=== PATIENT | male | born 1965 ===

== ENCOUNTER 2018-10-01 10:07 | Outpatient (REF) | payer BC, SELFPAY ==
[2018-10-01 17:11] LABS: ALT 101 U/L (12-78); Anion Gap 10.4 mmol/L (3-11); BUN 16 mg/dL (7-18); CO2 25.6 mmol/L (21.0-32.0); CREATININE 1.09 mg/dL (0.70-1.30); Calcium 8.9 mg/dL (8.5-10.1); Chloride 105 mmol/L (98-107); Cholesterol 284 mg/dL (50-200); Glucose 110 mg/dL (70-100); HDL Cholesterol 41 mg/dL (40-60); LDL CHOLESTEROL 205 mg/dL (<100); Potassium 4.3 mmol/L (3.5-5.1); Sodium 141 mmol/L (136-145); TSH 1.17 uIU/mL (0.358-3.74); Triglyceride 203 mg/dL (30-150)
[2018-10-03 09:07] LABS: PSA, Screening 0.5 ng/ml (0-3.5)
== END 2018-10-01 10:27 ==
LOC: NCHCN 10:07
PROVIDERS: PCP Internal Medicine; Visit Provider Internal Medicine
DX: R19.7 Diarrhea, unspecified (principal); Z00.00 Encounter for general adult medical examination without abnormal findings; Z13.220 Encounter for screening for lipoid disorders; Z12.5 Encounter for screening for malignant neoplasm of prostate
CPT/HCPCS: 80048; 80061; 83721; 84153; 84443; 84460

== ENCOUNTER 2020-11-25 23:02 | Outpatient (REF) | payer BC, SELFPAY ==
[2020-11-25 20:32] LABS: ALT 80 U/L (16-63); Calculated LDL 122 mg/dL (<100); Cholesterol 208 mg/dL (<200); Glucose 88 mg/dL (74-106); HDL Cholesterol 45 mg/dL (40-60); Triglyceride 205 mg/dL (<150)
[2020-11-25 20:47] LABS: Creatine Kinase 297 U/L (39-308)
== END 2020-11-25 23:03 | disposition home or self-care (01) ==
LOC: NCHCN 23:02
PROVIDERS: PCP Internal Medicine; Visit Provider Internal Medicine
DX: E78.5 Hyperlipidemia, unspecified (principal); R03.0 Elevated blood-pressure reading, without diagnosis of hypertension
CPT/HCPCS: 80061; 82550; 82947; 84460

== ENCOUNTER 2021-02-03 17:15 | Outpatient (REF) | payer BC, SELFPAY ==
[2021-02-03 20:37] LABS: Iron 110 ug/dL (65-175); Total Iron Binding Capacity 263 ug/dL (250-450); Transferrin Sat 42 % (20-55)
[2021-02-03 20:40] LABS: ALT 58 U/L (16-63); AST 32 U/L (15-37); Alkaline Phosphatase 65 U/L (46-116); Bilirubin, Total 0.7 mg/dL (0.2-1.0); Total Protein 7.2 g/dL (6.4-8.2)
[2021-02-03 20:49] LABS: Bilirubin, Direct 0.2 mg/dL (0.0-0.2)
[2021-02-05 09:23] LABS: HBs Antibody, Quant 296.2 mIU/mL (See Note); Hepatitis B Surface Ab Positive (See Note)
[2021-02-05 10:19] LABS: Hepatitis C Ab w Rflx HCV PCR Negative (Negative)
== END 2021-02-03 17:16 | disposition home or self-care (01) ==
LOC: NCHCN 17:15
PROVIDERS: PCP Internal Medicine; Visit Provider Internal Medicine
DX: E78.5 Hyperlipidemia, unspecified (principal); R94.5 Abnormal results of liver function studies; Z11.59 Encounter for screening for other viral diseases
CPT/HCPCS: 80076; 86706; 86803; 83540; 83550

== ENCOUNTER 2022-03-09 18:28 | Outpatient (REF) | payer BC, SELFPAY ==
[2022-03-09 22:05] LABS: Bilirubin Negative (Negative); Blood Negative (Negative); Clarity Clear (Clear); Glucose Negative (Negative); Ketones Negative (Negative); Leukocyte Esterase Negative (Negative); Nitrite Negative (Negative); Specific Gravity 1.015 (1.005-1.025); Urobilinogen 0.2 EU/dL (Up TO 0.2); pH 7.5 (5-8)
[2022-03-09 22:13] LABS: Abs Immature Grans 0.01 10^3/uL (0.0-0.06); Absolute Basophil Count 0.04 10^3/uL (0.0-0.2); Absolute Eosinophil Count 0.21 10^3/uL (0.0-0.7); Absolute Lymphocyte Count 2.34 10^3/uL (1.2-3.4); Absolute Monocyte Count 0.51 10^3/uL (0.1-0.8); Absolute Neutrophil Count 2.21 10^3/uL (1.2-6.7); Basophils % 0.8; Eosinophils % 3.9; HCT 46.9 % (40.0-50.0); HGB 16.8 g/dL (13.5-17.5); Immature Grans % 0.2; MCH 31.8 pg (27.0-33.0); MCHC 35.8 % (32.0-36.0); MCV 89 fL (80-95); Monocytes % 9.6; Neutrophils % 41.5; Platelet Count 178 10^3/uL (130-400); RBC 5.29 10^6/uL (4.36-5.78); RDW 12.2 % (11.8-14.1); RDW-SD 39.8 fL; WBC 5.32 10^3/uL (4.4-10.8)
[2022-03-09 22:17] LABS: ALT 80 U/L (16-63); AST 49 U/L (15-37); Albumin 4.3 g/dL (3.4-5.0); Alkaline Phosphatase 74 U/L (46-116); Anion Gap 9.1 mmol/L (3-11); BUN 15 mg/dL (7-18); Bilirubin, Total 1.2 mg/dL (0.2-1.0); CO2 23.9 mmol/L (21.0-32.0); CREATININE 0.9 mg/dL (0.70-1.30); Calcium 9.4 mg/dL (8.5-10.1); Chloride 105 mmol/L (98-107); Glucose 106 mg/dL (74-106); Potassium 4.3 mmol/L (3.5-5.1); Sodium 138 mmol/L (136-145); Total Protein 7.8 g/dL (6.4-8.2)
== END 2022-03-09 18:29 | disposition home or self-care (01) ==
LOC: NCHCN 18:28
PROVIDERS: PCP Internal Medicine; Visit Provider Nurse Practitioner Family
DX: R10.9 Unspecified abdominal pain (principal)
CPT/HCPCS: 80053; 81003; 85025

== ENCOUNTER 2023-08-14 18:03 | Outpatient (REF) | payer BC, SELFPAY ==
[2023-08-14 19:32] LABS: ALT 74 U/L (16-63); AST 45 U/L (15-37); Alkaline Phosphatase 80 U/L (46-116); Anion Gap 13.7 mmol/L (3-11); BUN 15 mg/dL (7-18); Bilirubin, Total 0.9 mg/dL (0.2-1.0); CO2 20.3 mmol/L (21.0-32.0); Calcium 9.1 mg/dL (8.5-10.1); Calculated LDL 88 mg/dL (<100); Chloride 103 mmol/L (98-107); Cholesterol 201 mg/dL (<200); Estimated GFR 88.33 (mL/min/1.73m2); Glucose 99 mg/dL (74-106); HDL Cholesterol 42 mg/dL (40-60); Potassium 3.6 mmol/L (3.5-5.1); Sodium 137 mmol/L (136-145); Total Protein 7.9 g/dL (6.4-8.2); Triglyceride 359 mg/dL (<150)
== END 2023-08-14 18:04 | disposition home or self-care (01) ==
LOC: NCHCN 18:03
PROVIDERS: PCP Internal Medicine; Visit Provider Internal Medicine
DX: R03.0 Elevated blood-pressure reading, without diagnosis of hypertension (principal); E78.5 Hyperlipidemia, unspecified; Z00.00 Encounter for general adult medical examination without abnormal findings
CPT/HCPCS: 80053; 80061

== ENCOUNTER 2024-07-29 20:38 | Outpatient (REF) | payer BC, SELFPAY ==
[2024-07-29 21:42] LABS: Anion Gap 12.8 mmol/L (3-11); BUN 13 mg/dL (7-18); CO2 21.2 mmol/L (21.0-32.0); CREATININE 1.1 mg/dL (0.70-1.30); Calcium 9.3 mg/dL (8.5-10.1); Calculated LDL 137 mg/dL (<100); Chloride 109 mmol/L (98-107); Cholesterol 216 mg/dL (<200); Glucose 114 mg/dL (74-106); HDL Cholesterol 52 mg/dL (40-60); Potassium 4.4 mmol/L (3.5-5.1); Sodium 143 mmol/L (136-145); Triglyceride 137 mg/dL (<150)
== END 2024-07-29 20:39 | disposition home or self-care (01) ==
LOC: NCHCN 20:38
PROVIDERS: PCP Internal Medicine; Visit Provider Internal Medicine
DX: R03.0 Elevated blood-pressure reading, without diagnosis of hypertension (principal)
CPT/HCPCS: 80048; 80061